=== PATIENT | female | born 1995 | race African-American/Black ===

== ENCOUNTER 2021-08-03 19:47 | Emergency (ER) | payer OTHER ==
[~2021-08-03] VITALS: Ht 157.5 cm; Wt 78.0 kg
[2021-08-03 19:48] VITALS: BP 137/90
[2021-08-04] MEDS ORDERED: PRED20TA PO (00:19)
== END 2021-08-04 00:54 | disposition home or self-care (01) ==
LOC: M ED 19:47
DX: M25.539 Pain in unspecified wrist (principal); W00.9XXA Unspecified fall due to ice and snow, initial encounter; Y92.099 Unspecified place in other non-institutional residence as the place of occurrence of the external cause; Y93.9 Activity, unspecified; Y99.9 Unspecified external cause status

== ENCOUNTER → 2021-11-08 | Outpatient (REF) | payer OTHER ==
[~2021-11-08] MED LIST: PRED20TA PO
[2021-11-08 15:02] LABS: GC DNA AMPLIFICATION NEGATIVE (NEGATIVE)
== END ==
LOC: M LAB REF 11:38
PROVIDERS: ATTEND Internal Medicine
DX: Z11.3 Encounter for screening for infections with a predominantly sexual mode of transmission (principal); N77.1 Vaginitis, vulvitis and vulvovaginitis in diseases classified elsewhere

== ENCOUNTER 2022-02-09 09:14 | Emergency (ER) | payer OTHER ==
[~2022-02-09] VITALS: Ht 157.5 cm; Wt 76.5 kg
[2022-02-09 09:15] VITALS: BP 131/79
[2022-02-09] MEDS ORDERED: LIDOCAINE 4% CREAM 5GM (LMX4) TOP ONE (11:50)
== END 2022-02-09 12:05 | disposition left against medical advice (07) ==
LOC: M ED 09:14
DX: M25.561 Pain in right knee (principal); M25.531 Pain in right wrist; M25.532 Pain in left wrist; Z53.21 Procedure and treatment not carried out due to patient leaving prior to being seen by health care provider

== ENCOUNTER 2022-07-06 11:10 | Emergency (ER) | payer OTHER ==
[~2022-07-06] VITALS: Ht 160 cm; Wt 76.7 kg
[2022-07-06] MEDS ORDERED: CYCL-707 (11:27)
[2022-07-06] MEDS ORDERED: AZEL20CR (11:27)
[2022-07-06] MEDS ORDERED: YAZ1TAB (11:27)
[2022-07-06] MEDS ORDERED: TRET0.02 (11:27)
[2022-07-06] MEDS ORDERED: NAPR-885 (11:27)
[2022-07-06] MEDS ORDERED: KETOROLAC 60MG 2ML VIAL IM ONE (12:55)
[2022-07-06 13:54] VITALS: BP 141/78
== END 2022-07-06 13:54 | disposition home or self-care (01) ==
LOC: M ED 11:10
DX: R51.9 Headache, unspecified (principal); Z79.1 Long term (current) use of non-steroidal anti-inflammatories (NSAID); Z79.899 Other long term (current) drug therapy
CPT/HCPCS: 70450; 96372; 99283; J1885

== ENCOUNTER → 2022-07-27 | Outpatient (REF) | payer OTHER ==
[~2022-07-27] MED LIST changes: +AZEL20CR; +CYCL-707; +NAPR-885; +TRET0.02; +YAZ1TAB
[2022-07-27 13:28] LABS: GC DNA AMPLIFICATION NEGATIVE (NEGATIVE)
== END ==
LOC: M LAB REF 11:50
PROVIDERS: ATTEND Physician Assistant
DX: Z20.2 Contact with and (suspected) exposure to infections with a predominantly sexual mode of transmission (principal)

== ENCOUNTER 2022-08-14 09:08 | Inpatient (IN) | payer OTHER ==
[~2022-08-14] VITALS: Ht 157.5 cm; Wt 74.5 kg
[~2022-08-14 09:08] MED LIST changes: -AZEL20CR; +AZEL20CR TOP; -CYCL-707; +CYCL-707 PO; -NAPR-885; +NAPR-885 PO; -TRET0.02; +TRET0.02 TOP; -YAZ1TAB; +YAZ1TAB PO
[2022-08-14 10:29] LABS: HEMATOCRIT 39.1 % (36.0-47.0); HEMOGLOBIN 12.9 g/dl (12.0-15.5); MEAN CORPUSCULAR VOLUME 87.9 fl (80.0-96.0); PLATELET COUNT, AUTOMATED 168 10^3/uL (150-450); RED BLOOD COUNT 4.45 10^6/uL (4.00-5.40); WHITE BLOOD COUNT 4.9 10^3/uL (4.0-10.0)
[2022-08-14 10:46] LABS: AMPHETAMINES LEVEL URINE NEGATIVE (NEGATIVE); BENZODIAZEPINES URINE NEGATIVE (NEGATIVE)
[2022-08-14 10:47] LABS: BARBITURATES URINE NEGATIVE (NEGATIVE); CANNABINOIDS URINE NEGATIVE (NEGATIVE); COCAINE METABOLITE URINE NEGATIVE (NEGATIVE); METHADONE URINE NEGATIVE (NEGATIVE); OPIATES URINE NEGATIVE (NEGATIVE); PHENCYCLIDINE URINE NEGATIVE (NEGATIVE)
[2022-08-14 10:59] LABS: ETHYL ALCOHOL (ETHANOL) < 0.003 % (0.000-0.010)
[2022-08-14 11:02] LABS: ACETAMINOPHEN LEVEL < 2.0 UG/ML (10.0-20.0); ALBUMIN 3.8 G/DL (3.2-5.2); ALKALINE PHOSPHATASE 72 U/L (46-116); ALT/SGPT 14 U/L (7.0-40); AST/SGOT 17 U/L (<34); BILIRUBIN,DIRECT 0.2 MG/DL (<0.4); BILIRUBIN,TOTAL 0.5 MG/DL (0.3-1.2); BLOOD UREA NITROGEN 8 MG/DL (9-23); CALCIUM LEVEL 8.8 MG/DL (8.5-10.1); CARBON DIOXIDE LEVEL 24 MMOL/L (20-31); CHLORIDE LEVEL 108 MMOL/L (98-107); GLOMERULAR FILTRATION RATE > 60.0 (>60); GLUCOSE, FASTING 87 MG/DL (60-100); POTASSIUM SERUM 3.6 MMOL/L (3.5-5.1); SALICYLATE LEVEL < 3.0 MG/DL (<30); SODIUM LEVEL 139 MMOL/L (136-145); TOTAL PROTEIN 6.6 G/DL (5.7-8.2)
[2022-08-14 11:05] LABS: THYROID STIMULATING HORMONE 0.491 uIU/ML (0.55-4.78)
[2022-08-14] MEDS ORDERED: MUPI2OI TOP (11:10)
[2022-08-14] MEDS ORDERED: VITA1CAP25 PO (11:11)
[2022-08-14] MEDS ORDERED: REFR0.5D8 OU (11:16)
[2022-08-14] MEDS ORDERED: HOME MED LIST COMPLETE! XX SCH (11:20)
[2022-08-14] MEDS ORDERED: GABAPENTIN 300 MG CAP PO ONE (11:40)
[2022-08-14] MEDS ORDERED: KETOROLAC 60MG 2ML VIAL IM ONE (11:40)
[2022-08-14] MEDS ORDERED: IBUPROFEN 400MG TAB PO PRN (13:55)
[2022-08-14] MEDS ORDERED: MOM 30ML SUSPENSION UDC PO PRN (13:55)
[2022-08-14] MEDS ORDERED: MAALOX 30 ML SUSP *UDC PO PRN (13:55)
[2022-08-14] MEDS ORDERED: POLYVINYL ALCOHOL OPHTH SOLN 15ML (LIQUITEARS) OU PRN (13:55)
[2022-08-14] MEDS ORDERED: traZODone 50 MG TAB PO PRN (13:55)
[2022-08-14 16:36] VITALS: BP 124/69
[2022-08-14] MEDS: NAPROXEN 250 MG TAB PO PRN (18:15)
[2022-08-14] MEDS: CYCLOBENZAPRINE 10MG TABLET PO PRN (20:49)
[2022-08-14] MEDS: MUPIROCIN 2% OINT 22 GM TUBE TOP SCH (20:50)
[2022-08-15] MEDS: NAPROXEN 250 MG TAB PO PRN (06:14)
[2022-08-15 06:54] VITALS: BP 122/74
[2022-08-15] MEDS ORDERED: YAZ PO SCH (09:00)
[2022-08-15] MEDS ORDERED: ACETAMINOPHEN 500 MG TAB PO PRN (11:40)
[2022-08-15 16:21] VITALS: BP 131/69
[2022-08-15] MEDS: MUPIROCIN 2% OINT 22 GM TUBE TOP SCH (21:00)
[2022-08-15] MEDS: CYCLOBENZAPRINE 10MG TABLET PO PRN (21:07)
[2022-08-16 06:21] VITALS: BP 105/53
[2022-08-16] MEDS: NAPROXEN 250 MG TAB PO PRN (07:44)
== END 2022-08-16 10:40 | disposition home or self-care (01) | DRG 885 ==
LOC: M ED 09:08 → M ED INP 13:54 → M PSY 16:29
PROVIDERS: ADMIT Student in an Organized Health Care Education/Training Program; ATTEND Psychiatry & Neurology Psychiatry
DX: F32.89 Other specified depressive episodes (principal); R45.851 Suicidal ideations; F41.9 Anxiety disorder, unspecified; Z91.018 Allergy to other foods; E02 Subclinical iodine-deficiency hypothyroidism; G56.03 Carpal tunnel syndrome, bilateral upper limbs; M16.0 Bilateral primary osteoarthritis of hip

== ENCOUNTER 2022-08-24 07:50 | Emergency (ER) | payer OTHER ==
[~2022-08-24] VITALS: Ht 157.5 cm; Wt 75.9 kg
[~2022-08-24 07:50] MED LIST changes: +MUPI2OI TOP; +REFR0.5D8 OU; +VITA1CAP25 PO
[2022-08-24] MEDS ORDERED: BENA25CA4 PO (08:02)
[2022-08-24] MEDS ORDERED: DULO1CAP4 (08:02)
[2022-08-24] MEDS ORDERED: FAMOTIDINE 20MG/2ML VIAL IVP ONE (11:10)
[2022-08-24] MEDS ORDERED: NS 1,000 ML IV ONE (11:10)
[2022-08-24] MEDS ORDERED: methylPREDNISolone 125MG 2ML VIAL IV ONE (11:10)
[2022-08-24] MEDS ORDERED: MEDR4PAK PO (13:28)
[2022-08-24 13:58] VITALS: BP 109/69
== END 2022-08-24 14:08 | disposition home or self-care (01) ==
LOC: M ED 07:50
DX: T78.04XA Anaphylactic reaction due to fruits and vegetables, initial encounter (principal); F32.A Depression, unspecified; F41.9 Anxiety disorder, unspecified; F10.10 Alcohol abuse, uncomplicated; Z91.018 Allergy to other foods; Z79.83 Long term (current) use of bisphosphonates; Z79.52 Long term (current) use of systemic steroids; Z79.899 Other long term (current) drug therapy
CPT/HCPCS: 87426; 87880; 93041; 94760; 96361; 96374; 99284; J2930; S0028

== ENCOUNTER 2022-09-06 06:39 | Emergency (ER) | payer OTHER ==
[~2022-09-06 06:39] MED LIST changes: +BENA25CA4 PO; +DULO1CAP4; +MEDR4PAK PO
[2022-09-06] MEDS ORDERED: AMOX500C PO (08:22)
[2022-09-06] MEDS ORDERED: ONDA4TAB6 PO (08:23)
[2022-09-06 08:40] VITALS: BP 148/69
== END 2022-09-06 08:47 | disposition home or self-care (01) ==
LOC: M ED 06:39
DX: J02.0 Streptococcal pharyngitis (principal); M25.551 Pain in right hip; M25.561 Pain in right knee; R51.9 Headache, unspecified; M54.50 Low back pain, unspecified; F41.9 Anxiety disorder, unspecified; Z91.018 Allergy to other foods; Z79.2 Long term (current) use of antibiotics; Z79.83 Long term (current) use of bisphosphonates; Z79.899 Other long term (current) drug therapy

== ENCOUNTER 2022-09-19 06:56 | Emergency (ER) | payer OTHER ==
[~2022-09-19] VITALS: Ht 157.5 cm; Wt 76.0 kg
[~2022-09-19 06:56] MED LIST changes: +AMOX500C PO; +ONDA4TAB6 PO
[2022-09-19] MEDS ORDERED: ACET-840 (07:04)
[2022-09-19] MEDS ORDERED: KETOROLAC 60MG 2ML VIAL IM ONE (10:00)
[2022-09-19] MEDS ORDERED: KETOROLAC 30 MG/ML 1ML VIAL IV ONE (10:55)
[2022-09-19 11:09] LABS: HEMATOCRIT 38.4 % (36.0-47.0); HEMOGLOBIN 12.8 g/dl (12.0-15.5); MEAN CORPUSCULAR HEMOGLOBIN 29.4 pg (27.0-33.0); MEAN CORPUSCULAR HGB CONC 33.3 g/dl (32.0-36.5); MEAN CORPUSCULAR VOLUME 88.1 fl (80.0-96.0); PLATELET COUNT, AUTOMATED 190 10^3/uL (150-450); RED BLOOD COUNT 4.36 10^6/uL (4.00-5.40); WHITE BLOOD COUNT 5.1 10^3/uL (4.0-10.0)
[2022-09-19 11:13] LABS: BLOOD UREA NITROGEN 12 MG/DL (9-23); C REACTIVE PROTEIN QUANTITATIV < 0.40 MG/DL (<1.0); CALCIUM LEVEL 8.7 MG/DL (8.5-10.1); CARBON DIOXIDE LEVEL 26 MMOL/L (20-31); CHLORIDE LEVEL 107 MMOL/L (98-107); CREATININE FOR GFR 0.76 MG/DL (0.55-1.30); GLOMERULAR FILTRATION RATE > 60.0 (>60); GLUCOSE, FASTING 79 MG/DL (60-100); POTASSIUM SERUM 4.3 MMOL/L (3.5-5.1); SODIUM LEVEL 139 MMOL/L (136-145)
[2022-09-19 11:29] LABS: ERYTHROCYTE SEDIMENTATION RATE 16 mm/hr (0-20)
[2022-09-19 13:12] VITALS: BP 131/90
== END 2022-09-19 13:14 | disposition home or self-care (01) ==
LOC: M ED 06:56
DX: M25.552 Pain in left hip (principal); M25.562 Pain in left knee; F41.9 Anxiety disorder, unspecified; M54.50 Low back pain, unspecified; Z91.018 Allergy to other foods; Z79.891 Long term (current) use of opiate analgesic; Z79.899 Other long term (current) drug therapy
CPT/HCPCS: 73502; 73564; 80048; 85027; 85652; 86140; 96372; 96374; 99283; J1885